=== PATIENT | male | born 1970 | race Caucasian/White ===

== ENCOUNTER 2017-12-02 19:41 | Emergency (ER) | payer SELFPAY ==
[~2017-12-02] VITALS: Ht 200.7 cm; Wt 136.4 kg
[~2017-12-02 19:41] MED LIST: LORA-474 PO; LORT5TAB PO; Z.0.NO CURRENT MEDS
[2017-12-02 19:42] VITALS: BP 169/91; PULSE 91; RESP 16; TEMP 98.6; O2SAT 97
--- NOTE | 2017-12-03 11:09 | PD ---
Physical Exam Date Seen by Provider: Dec 02, 2017 Time Seen by Provider: 19:47 Narrative 46-year-old male presents to the emergency department reporting left-sided chest pain that started approximately 2 weeks ago, but worsened yesterday. He states it is sharp and only lasts for a few seconds at a time. It has been happening intermittently without radiation. Patient reports history of hypertension, hyperlipidemia, asthma. Data Data Last Documented VS Vital Signs Date Time Temp Pulse Resp B/P (MAP) Pulse Ox O2 Delivery O2 Flow Rate FiO2 12/02/17 19:42 98.6 91 16 169/91 (117) 97 Orders Orders Electrocardiogram (12/02/17 ) [facility] Supervised Visit with EVITA: No Narrative Course 46-year-old male presents to the emergency department for evaluation of intermittent left-sided sharp chest pain that has been ongoing for 2 weeks. Patient is initially seen in triage a workup is initiated. Patient left AGAINST MEDICAL ADVICE before he could be placed in a medical bed. Diagnosis Primary Impression: Left against medical advice Additional Impression: Chest pain Qualified Codes: R07.9 - Chest pain, unspecified Disposition: 07 AGAINST MEDICAL ADVICE Yazmin Rojas Dec 03, 2017 11:09
--- NOTE | 2017-12-03 14:53 | EKG ---
Date Performed: 12/02/2017 Time Performed: 20:12:41 PTAGE: 46 years EKG: Sinus rhythm Minor INTRAVENTRICULAR CONDUCTION DELAY ABNORMAL ECG PREVIOUS TRACING : 07/01/2010 01.17 Suspect no change from the prior tracing. DOCTOR: Tavon Mann Interpretating Date/Time 12/03/2017 14:52:56
== END 2017-12-02 23:10 | disposition left against medical advice (07) ==
LOC: NED 19:41
DX: R07.9 Chest pain, unspecified (principal)
CPT/HCPCS: 93005; 99283